=== PATIENT | male | born 1950 | race Caucasian/White ===

== ENCOUNTER → 2016-12-20 | Outpatient (CLI) | payer OTHER ==
[~2016-12-20] MED LIST: ACET-1256 PO; ACET-749 PO; ASCO500T3 PO; ASPI81TA28 PO; ATOR-22 PO; CIPR-255 PO; KRIL1CAP18 PO; NORT75CA2 PO; PHEN-876 PO; SERT50TA PO; VITAMIN D PO
== END | disposition home or self-care (01) ==
LOC: C.LABSPEC 17:55 → C.PATHSPEC 18:21
PROVIDERS: ATTEND Nurse Practitioner Family
DX: R31.0 Gross hematuria (principal); C68.9 Malignant neoplasm of urinary organ, unspecified

== ENCOUNTER 2017-01-03 04:48 | Day surgery (SDC) | payer OTHER ==
--- NOTE | 2016-12-28 11:34 | PAT Medication Instructions ---
Service Date December 28, 2016. Current Home Medication List Acetaminophen (Tylenol), 1,000 MG PO PRN Ascorbic Acid (Vitamin C), 500 MG PO BID Aspirin (Aspirin Ec), 81 MG PO QPM Atorvastatin (Lipitor), 20 MG PO QPM Krill Oil (Megared [place]-3 Krill Oil 500 mg), 1 TAB PO QAM Nortriptyline Hcl (Pamelor), 75 MG PO HS Sertraline (Zoloft), 50 MG PO QPM [Vitamin D], 800 UNITS PO BID Medication Instructions For Your Scheduled Surgery - Held as of 12/20/16: Krill Oil (Megared [place]-3 Krill Oil 500 mg), 1 TAB PO QAM Aspirin (Aspirin Ec), 81 MG PO QPM - Hold the following medications the morning of surgery: Ascorbic Acid (Vitamin C), 500 MG PO BID [Vitamin D], 800 UNITS PO BID - Take the following medications the morning of surgery with a sip of water OTHERWISE NOTHING TO EAT OR DRINK AFTER MIDNIGHT: Acetaminophen (Tylenol), 1,000 MG PO PRN (may take up to 4 hours prior to surgery if needed) - Take the following medications as scheduled the night before surgery: Ascorbic Acid (Vitamin C), 500 MG PO BID [Vitamin D], 800 UNITS PO BID Atorvastatin (Lipitor), 20 MG PO QPM Nortriptyline Hcl (Pamelor), 75 MG PO HS Sertraline (Zoloft), 50 MG PO QPM Acetaminophen (Tylenol), 1,000 MG PO PRN If you have any questions please call us at [phone] or [phone] or [phone]
--- NOTE | 2016-12-28 12:11 | DIAGNOSTIC IMAGING REPORT ---
CHEST PREADMISSION(PA/LAT) CLINICAL HISTORY: Preoperative evaluation. COMPARISON STUDY: No previous studies for comparison. FINDINGS: There is mild lung hyperexpansion. No consolidation is identified and there is no evidence of pulmonary edema. Cardiomediastinal silhouette is normal. There is no pneumothorax or pleural effusion. IMPRESSION: 1. No acute cardiopulmonary findings. 2. Mild lung hyperexpansion. Electronically signed by: Gigi Silvestre M.D. 12/28/2016 12:10 PM Dictated Date/Time: 12/28/2016 12:09 PM
[2016-12-28 12:24] LABS: BASO % 0.5 %; BASO ABS # 0.04 K/uL (0-0.2); COMPLETE YES; EOS % 2.1 %; HEMATOCRIT 46.2 % (42-52); IG% 0.3 %; LYMPH % 18.4 %; LYMPH ABS # 1.42 K/uL (1.2-3.4); MEAN CELL VOLUME 93.1 fL (80-100); MEAN CORPUSCULAR HGB CONC 33.3 g/dl (32-36); MEAN PLATELET VOLUME 8.8 fL (7.4-10.4); MONO % 6.8 %; NEUT % 71.9 %; PLATELET COUNT 224 K/uL (130-400); RED BLOOD COUNT 4.96 M/uL (4.7-6.1)
[2016-12-28 12:32] LABS: URINE APPEARANCE CLEAR (CLEAR); URINE BILIRUBIN NEG (NEG); URINE COLOR YELLOW; URINE NITRITE NEG (NEG); URINE SPECIFIC GRAVITY 1.008 (1.000-1.030); UROBILINOGEN NEG (NEG)
[2016-12-28 12:38] LABS: MANUAL MICROSCOPIC REQUIRED? NO; REVIEW REQ? NO
[2016-12-28 13:36] LABS: CALCIUM 9.5 mg/dl (8.5-10.1); CREATININE 0.92 mg/dl (0.60-1.40); POTASSIUM 4.5 mmol/L (3.5-5.1)
[~2017-01-03] VITALS: Ht 198.1 cm; Wt 119.7 kg
[~2017-01-03 04:48] MED LIST changes: -ACET-749 PO; -CIPR-255 PO; -PHEN-876 PO
[2017-01-03 05:38] VITALS: BP 148/86; PULSE 86; TEMP 36.5; O2SAT 97; Ht 198.1 cm; Wt 119.7 kg
[2017-01-03] MEDS ORDERED: MITOMYCIN FOR INJ 40 MG in SYRINGE 40 ML IR SCH (06:00)
[2017-01-03] MEDS ORDERED: LACTATED RINGER'S 1000ML 1,000 ML IV SCH (06:00)
[2017-01-03] MEDS ORDERED: CIPROFLOXACIN / D5W 400 MG IV SCH (06:00)
[2017-01-03] MEDS ORDERED: MIDAZOLAM HCL 1 MG/ML 2ML VIAL ONE (06:48)
[2017-01-03] MEDS ORDERED: FENTANYL CITRATE INJ 50 MCG/1 ML 2 ML VIAL ONE (06:48)
[2017-01-03 06:52] VITALS: PULSE 74; O2SAT 95
--- NOTE | 2017-01-03 07:16 | History & Physical Bridge Note ---
H&P Re-Evaluation Bridge Note: I have examined the patient, reviewed the History & Physical and in the interval since the performance of the History & Physical I have noted the following changes of clinical significance: No changes noted
[2017-01-03] MEDS ORDERED: DEXAMETHASONE SOD INJ 4 MG/ML VIAL ONE (07:35)
[2017-01-03] MEDS ORDERED: LIDOCAINE HCL 2% 2 ML VIAL (20MG/ML) ONE (07:35)
[2017-01-03] MEDS ORDERED: PROPOFOL IV EMULSION 10 MG/ML 20 ML VIAL IV ONE (07:35)
[2017-01-03] MEDS ORDERED: ONDANSETRON INJ 2 MG/ML 2 ML VIAL ONE (07:35)
[2017-01-03] MEDS ORDERED: HYDROmorphone INJ 2 MG/ML SYR/VIAL IV PRN (07:45)
[2017-01-03] MEDS ORDERED: PHENYLEPHRINE 100MCG/ML 5ML SYR IV PRN (07:45)
[2017-01-03] MEDS ORDERED: ATROPINE SULFATE 0.1 MG/ML 5ML SYR IV PRN (07:45)
[2017-01-03] MEDS ORDERED: EpHEDrine SULFATE INJ 50 MG/ML AMP IV PRN (07:45)
[2017-01-03] MEDS ORDERED: ONDANSETRON INJ 2 MG/ML 2 ML VIAL IV PRN (07:45)
[2017-01-03] MEDS ORDERED: BELLADONNA/OPIUM SUPP 60 MG SUPP PR ONE ×2 (08:20→11:26)
--- NOTE | 2017-01-03 08:34 | [facility] Post Operative Brief Note ---
Immediate Operative Summary Operative Date January 03, 2017. Pre-Operative Diagnosis Bladder Cancer Post-Operative Diagnosis Multifocal Bladder Cancer Procedure(s) Performed Cystoscopy, Transuretheral Resection Bladder Tumor (large, multifocal), Mytomycin C Installation Surgeon Dr. Schumacher Trawl Net Maker Surgeon(s) none Estimated Blood Loss 5 cc Findings Multifocal, papillary bladder ca. Majority of tumor on the left trigone, bladder neck, and lateral wall. UO spared. Main tumors located in a cluster surrounding, but not involving the UO. At least 15 satellite tumors scattered around the remainder of the bladder. Specimens A: Bladder tumor Drains Desai to pacu (to be removed after mitomycin C is drained) Anesthesia Gen Complication(s) None Disposition Recovery Room / PACU (stable)
[2017-01-03] MEDS ORDERED: PHEN-876 PO (08:35)
[2017-01-03] MEDS ORDERED: CIPR-255 PO (08:35)
[2017-01-03] MEDS ORDERED: ACET-749 PO (08:35)
[2017-01-03] MEDS ORDERED: SODIUM CHLORIDE 0.9% 1000ML 1,000 ML IV SCH (08:37)
--- NOTE | 2017-01-03 08:37 | Discharge Instructions ---
Discharge Instructions Date of Service January 03, 2017. Admission Reason for Admission: Hematuria , Bladder Cancer Discharge Discharge Diagnosis / Problem: Bladder cancer Discharge Goals Goal(s): Decrease discomfort, Improve function, Increase independence, Improve disease control Activity Recommendations Activity Limitations: resume your previous activity Lifting Limitations: none, gradually increase as tolerated Exercise/Sports Limitations: gradually increase as tolerated May Resume Sexual Activity: when tolerated Shower/Bathe: no limitations Driving or Machine Use: resume 1 day after discharge . Instructions / Follow-Up Instructions / Follow-Up Please keep your previously scheduled follow up appointment Discharge Diet Recommended Diet: Regular Diet Procedures Procedures Performed: Cystoscopy, Transuretheral Resection Bladder Tumor (large, multifocal), Mytomycin C Installation Pending Studies Studies pending at discharge: no Medical Emergencies . Who to Call and When: Medical Emergencies: If at any time you feel your situation is an emergency, please call 911 immediately. . Non-Emergent Contact Non-Emergency issues call your: Urologist Call Non-Emergent contact if: you have a fever, temperature is above 101.5, your pain is not controlled, your pain is worsening . . "Provider Documentation" section prepared by Helder Fraser. . VTE Core Measure Inpt VTE Proph given/why not?: Treatment not indicated [place] Drug Monitoring Program Search Results: patient reviewed within database, no issues identified
[2017-01-03] MEDS ORDERED: KETOROLAC TROMETHAMINE 30 MG/ML VIAL ONE (08:42)
[2017-01-03] MEDS ORDERED: ACETAMINOPHEN 325 MG TAB PO PRN (08:45)
[2017-01-03] MEDS ORDERED: HYDROCODONE/ACETAMOPHEN 5/325MG TAB PO PRN ×2 (08:45)
[2017-01-03] MEDS ORDERED: PHENAZOPYRIDINE HCL 200 MG TAB PO PRN (08:45)
[2017-01-03] MEDS ORDERED: PHENAZOPYRIDINE HCL 200 MG TAB PO SCH (09:00)
[2017-01-03 09:25] VITALS: BP 131/72; PULSE 73; TEMP 36.7; O2SAT 96
[2017-01-03 09:50] VITALS: BP 140/79; PULSE 80; O2SAT 94
[2017-01-03 10:25] VITALS: BP 140/77; PULSE 87; O2SAT 94
--- NOTE | 2017-01-03 10:28 | Anesthesiology Progress Note ---
Anesthesia Post Op Note Date & Time January 03, 2017 at 10:28 Vital Signs Pain Intensity: 0 Vital Signs Past 12 Hours Date Time Temp Pulse Resp B/P Pulse Ox O2 Delivery O2 Flow Rate FiO2 01/03/17 09:50 80 18 140/79 94 Room Air 01/03/17 09:25 36.7 73 18 131/72 96 Room Air 01/03/17 09:15 120/79 01/03/17 09:13 77 18 94 01/03/17 09:13 75 18 01/03/17 09:10 114/72 01/03/17 09:08 74 12 01/03/17 09:08 36.6 73 16 120/79 95 Room Air 01/03/17 09:08 75 12 96 01/03/17 09:05 118/75 01/03/17 09:03 79 16 94 01/03/17 09:03 79 16 01/03/17 09:00 120/71 01/03/17 08:58 80 17 94 01/03/17 08:58 79 17 01/03/17 08:57 81 14 01/03/17 08:57 80 14 95 01/03/17 08:56 118/ 01/03/17 08:52 75 18 01/03/17 08:52 77 18 96 01/03/17 08:50 114/69 01/03/17 08:47 69 20 01/03/17 08:47 68 20 98 01/03/17 08:46 131/76 01/03/17 08:42 93 21 142/77 96 01/03/17 08:42 93 21 01/03/17 08:42 36.0 91 18 142/77 96 Mask 10 01/03/17 06:52 74 16 95 Room Air 01/03/17 05:38 36.5 86 20 148/86 97 Room Air Notes Mental Status: alert / awake / arousable, participated in evaluation Pt Amnestic to Procedure: Yes Nausea / Vomiting: adequately controlled Pain: adequately controlled Airway Patency, RR, SpO2: stable & adequate BP & HR: stable & adequate Hydration State: stable & adequate Anesthetic Complications: no major complications apparent
--- NOTE | 2017-01-03 11:44 | OPERATIVE REPORT ---
DATE OF OPERATION: 01/03/2017 PREOPERATIVE DIAGNOSIS: Bladder tumor. POSTOPERATIVE DIAGNOSIS: Multifocal papillary bladder tumors. PROCEDURE PERFORMED: Cystoscopy, transurethral resection of bladder tumor (large); instillation of mitomycin C ANESTHESIA: General. ESTIMATED BLOOD LOSS: 5 Ml. URINE OUTPUT: Not recorded. SPECIMENS: Bladder tumor for routine pathology. DESCRIPTION OF THE PROCEDURE: Darren Tyson was identified in the preoperative holding area. Appropriate informed consents were reviewed and completed and the patient was transported to the operating suite. Upon arrival, he received appropriate preoperative antibiotics in the form of ciprofloxacin. Adequate general anesthesia was achieved and the patient was placed in dorsal lithotomy position where he was sterilely prepped and draped in standard fashion. I began the case by passing a 27-Slovak resectoscope with 30 degree lens and visual obturator. I was able to inspect the urethra and noted no abnormalities. He has a relatively small prostate with mild lateral lobe hypertrophy. Immediately upon entry into the bladder I encountered papillary appearing bladder tumors arising predominately from the left lateral bladder wall, left side of the trigone and the left serenity bladder neck. Full inspection of these revealed a primary tumor that was approximately 4-5 cm across with two or three other moderated sized 2-3 cm tumors immediately adjacent to it. I was able to identify the left ureteral orifice in the healthy appearing tissue between these tumors. I then surveyed the remaining aspects of the bladder and identified at least 15 other satellite tumors. The majority of these were very small, probably 2-3 mm in size, but were scattered along the posterior bladder wall, the left lateral wall and anterior left side. Following my full inspection, I exchanged the visual obturator for resecting loop and I began with the satellite tumors fulgurating and resecting all of these tumors flush with the bladder. Again, this is in excess of 15 small tumors. I then turned my attention to the larger tumors that were the predominant finding. I sequentially resected all of these beginning at the anterior lateral aspect and moving medially. I used extreme care to preserve the ureteral orifice to avoid cautery around it. I completed my resection by resecting the area around the bladder neck and fulgurated all bleeding vessels. I then irrigated all tumor out of the bladder. I inspected all resection sites and saw no evidence of perforation or other abnormalities. There was excellent hemostasis. I left the bladder full. I withdrew my cystoscope and placed a Desai catheter. The Desai catheter first drained the bladder and then I utilized this catheter to instill 40 mg of mitomycin mixed with 40 mL of water. Catheter was clamped after installation of this with a Desai bag attached below the clamp. The patient was sent to the PACU with this in place and will hold the mitomycin for 40 minutes to 1 hour to treat the remaining aspects of the bladder. The patient was subsequently extubated, reversed from anesthesia and taken to the PACU in stable condition. I attest to the content of the Intraoperative Record and any orders documented therein. Any exceptions are noted below. TRISTEND
[2017-01-03 12:05] VITALS: BP 154/76; PULSE 91; TEMP 36.5; O2SAT 91
[2017-01-03] MEDS ORDERED: TAMSULOSIN HCL 0.4 MG CAP PO SCH (21:00)
== END 2017-01-03 12:22 | disposition home or self-care (01) ==
LOC: C.ACU 04:48
PROVIDERS: ATTEND Urology
DX: C67.9 Malignant neoplasm of bladder, unspecified (principal); M19.90 Unspecified osteoarthritis, unspecified site; E78.5 Hyperlipidemia, unspecified; F17.200 Nicotine dependence, unspecified, uncomplicated; Z79.82 Long term (current) use of aspirin; Z82.49 Family history of ischemic heart disease and other diseases of the circulatory system; Z79.899 Other long term (current) drug therapy

== ENCOUNTER → 2017-03-20 | Outpatient (CLI) | payer OTHER ==
[~2017-03-20] MED LIST changes: +ACET-749 PO; +CIPR-255 PO; +PHEN-876 PO
[2017-03-20 16:36] LABS: BASO % 0.5 %; BASO ABS # 0.04 K/uL (0-0.2); COMPLETE YES; EOS % 2.3 %; HEMATOCRIT 46.4 % (42-52); IG% 0.3 %; LYMPH % 15.5 %; LYMPH ABS # 1.36 K/uL (1.2-3.4); MEAN CELL VOLUME 91.5 fL (80-100); MEAN CORPUSCULAR HEMOGLOBIN 30.8 pg (25-34); MEAN CORPUSCULAR HGB CONC 33.6 g/dl (32-36); MEAN PLATELET VOLUME 8.6 fL (7.4-10.4); MONO % 7.4 %; PLATELET COUNT 237 K/uL (130-400); RED BLOOD COUNT 5.07 M/uL (4.7-6.1); URINE APPEARANCE CLOUDY (CLEAR); URINE BILIRUBIN NEG (NEG); URINE COLOR YELLOW; URINE EPITHELIAL CELL AUTO 0-5 /lpf (0-5); URINE NITRITE NEG (NEG); URINE SPECIFIC GRAVITY 1.015 (1.000-1.030); UROBILINOGEN NEG (NEG); WHITE BLOOD COUNT 8.78 K/uL (4.8-10.8)
[2017-03-20 16:43] LABS: MANUAL MICROSCOPIC REQUIRED? NO; REVIEW REQ? YES
[2017-03-20 17:04] LABS: BLOOD UREA NITROGEN 15 mg/dl (7-18); BUN/CREATININE RATIO 13.6 (10-20); CALCIUM 9.4 mg/dl (8.5-10.1); CARBON DIOXIDE 28 mmol/L (21-32); CHLORIDE 105 mmol/L (98-107); GLUCOSE 97 mg/dl (70-99); SODIUM 139 mmol/L (136-145)
--- NOTE | 2017-05-06 05:50 | CODING QUERY MEDICAL NECESSITY ---
CQSUPPORTING DIAGNOSIS NEEDED A supporting diagnosis is required for the test/procedure performed on this patient in order for us to be reimbursed by the patient's insurance. Please provide a supporting diagnosis for the following test/procedure listed below next to the test name along with your signature. *If there is no additional diagnosis for this patient that would support the following test/procedure please document that below next to the test/procedure. Test(s)/Procedure(s) that require a supporting diagnosis: SAMARA 03/20/17 URINE CULTURE TEST Provider Signature: Date: Thank you Jennifer Durbin Health Information Management Once completed, please kindly fax back to [phone] For questions please call [phone]
== END | disposition home or self-care (01) ==
LOC: C.LAB 15:26
PROVIDERS: ATTEND Urology
DX: Z01.812 Encounter for preprocedural laboratory examination (principal); C67.9 Malignant neoplasm of bladder, unspecified

== ENCOUNTER 2017-03-28 07:18 | Day surgery (SDC) | payer OTHER ==
[~2017-03-28] VITALS: Ht 198.1 cm; Wt 120.0 kg
[~2017-03-28 07:18] MED LIST changes: +CIPROFLOXACIN / D5W 400 MG IV SCH; +LACTATED RINGER'S 1000ML 1,000 ML IV SCH
[2017-03-28] MEDS ORDERED: PROPOFOL IV EMULSION 10 MG/ML 20 ML VIAL IV ONE (07:47)
[2017-03-28] MEDS ORDERED: LIDOCAINE HCL 2% 2 ML VIAL (20MG/ML) ONE (07:47)
[2017-03-28] MEDS ORDERED: FENTANYL CITRATE INJ 50 MCG/1 ML 2 ML VIAL ONE ×2 (07:48→09:37)
[2017-03-28] MEDS ORDERED: MIDAZOLAM HCL 1 MG/ML 2ML VIAL ONE (07:48)
[2017-03-28 07:57] VITALS: BP 120/81; PULSE 94; TEMP 36.5; O2SAT 97; Ht 198.1 cm; Wt 120.0 kg
[2017-03-28] MEDS ORDERED: ONDANSETRON INJ 2 MG/ML 2 ML VIAL IV PRN ×2 (09:30→10:45)
[2017-03-28] MEDS ORDERED: EpHEDrine SULFATE INJ 50 MG/ML AMP IV PRN ×2 (09:30→10:45)
[2017-03-28] MEDS ORDERED: FENTANYL CITRATE INJ 50 MCG/1 ML 2 ML VIAL IV PRN ×2 (09:30→10:45)
[2017-03-28] MEDS ORDERED: ATROPINE SULFATE 0.1 MG/ML 5ML SYR IV PRN ×2 (09:30→10:45)
[2017-03-28] MEDS ORDERED: PROMETHAZINE HCL INJ 6.25 MG in SODIUM CHLORIDE 0.9% 50ML 50 ML IV PRN ×2 (09:30→10:45)
[2017-03-28] MEDS ORDERED: OXYCODONE/ACETAMINOPHEN 5-325 TAB PO PRN ×2 (10:00)
[2017-03-28] MEDS ORDERED: ACETAMINOPHEN 325 MG TAB PO PRN (10:00)
[2017-03-28] MEDS ORDERED: SODIUM CHLORIDE 0.9% 1000ML 1,000 ML IV SCH (10:00)
[2017-03-28] MEDS ORDERED: ONDANSETRON INJ 2 MG/ML 2 ML VIAL ONE (10:10)
--- NOTE | 2017-03-28 10:12 | [facility] Operative Report ---
Operative Report Operative Date Mar 28, 2017. Pre-Operative Diagnosis Bladder Cancer Post-Operative Diagnosis Bladder Cancer Procedure(s) Performed Cystoscopy, Numerous Bladder Biopsies, Fulgeration Surgeon Dr. Schumacher Magistrate Judge Surgeon(s) none Estimated Blood Loss 5 cc Findings Necrotic tissue on his prior resection site on the left lateral wall and at the bladder neck; erythematous patches on the right lateral wall and posterior wall ; no recurrent papillary tumors Specimens A: Right Lateral Wall Biopsy B: Left Lateral Wall Biopsy C: Left Lateral Wall Biopsy prior to resection site Drains none Anesthesia Gen Complication(s) None Disposition Recovery Room / PACU (stable) Indications History of bladder cancer ;concern for recurrent Description of Procedure Darren Tyson was identified in the preoperative holding area, appropriate informed consents were reviewed and completed, and the patient was transported to the operating suite. Upon arrival he received appropriate preoperative antibiotics in the form of ciprofloxacin. Adequate general anesthesia was achieved, and the patient was placed in dorsal lithotomy position where he was sterilely prepped and draped in standard fashion. I begin the case by passing a 24 Ghanaian resectoscope with 30 lens and visual obturator. Inspection of the urethra failed to reveal any stricture disease, prostate was moderately enlarged without significant obstruction. Full evaluation of the bladder was carried out utilizing a 30 and 70 lens. This revealed to prior resection site on the left lateral wall which did not completely healed. There appeared to be necrotic tissue protruding from both of these resection sites. He was no evidence of papillary tumor in these areas. Additional areas of concern were noted on the posterior wall and the right lateral wall. While there were no papillary tumors appreciated, there were numerous small erythematous patches. I proceeded by biopsying the erythematous patches on the right lateral and posterior chapman. I then fulgurated the bases of these lesions. I continued by gently scraping of the necrotic tissue from the prior resection sites. I then performed bladder biopsies at the base of these areas and passed this off the table as a separate specimen. I utilized electrocautery loop fulgurated the full area of the prior resection site including the erythematous base and the biopsy site. I then drain the bladder after confirming excellent hemostasis. Case was concluded, the patient was extended and taken to PACU in stable condition. I attest to the content of the Intraoperative Record and any orders documented therein. Any exceptions are noted below.
[2017-03-28] MEDS ORDERED: PHEN-876 PO (10:13)
[2017-03-28] MEDS ORDERED: CIPR-255 PO (10:13)
[2017-03-28] MEDS ORDERED: ACET-749 PO (10:13)
--- NOTE | 2017-03-28 10:16 | Discharge Instructions ---
Discharge Instructions Date of Service Mar 28, 2017. Admission Reason for Admission: Bladder Cancer Discharge Discharge Diagnosis / Problem: bladder cancer Discharge Goals Goal(s): Decrease discomfort, Improve function, Increase independence, Improve disease control Activity Recommendations Activity Limitations: resume your previous activity Lifting Limitations: none Exercise/Sports Limitations: none May Resume Sexual Activity: when tolerated Shower/Bathe: no limitations Driving or Machine Use: resume 1 day after discharge . Instructions / Follow-Up Instructions / Follow-Up Please keep your previously scheduled follow-up appointment Discharge Diet Recommended Diet: Regular Diet Procedures Procedures Performed: Cystoscopy, Numerous Bladder Biopsies, Fulgeration Pending Studies Studies pending at discharge: no Medical Emergencies . Who to Call and When: Medical Emergencies: If at any time you feel your situation is an emergency, please call 911 immediately. . Non-Emergent Contact Non-Emergency issues call your: Urologist Call Non-Emergent contact if: you have a fever, temperature is above 101.5, your pain is not controlled, your pain is worsening . . "Provider Documentation" section prepared by Helder Fraser. . VTE Core Measure Inpt VTE Proph given/why not?: Treatment not indicated [place] Drug Monitoring Program Search Results: patient reviewed within database, no issues identified
--- NOTE | 2017-03-28 10:42 | Anesthesiology Progress Note ---
Anesthesia Post Op Note Date & Time Mar 28, 2017 at 10:41 Vital Signs Pain Intensity: 0 Vital Signs Past 12 Hours Date Time Temp Pulse Resp B/P (MAP) Pulse Ox O2 Delivery O2 Flow Rate FiO2 03/28/17 10:38 36.3 03/28/17 10:37 74 16 92 03/28/17 10:37 74 16 93 03/28/17 10:36 121/81 03/28/17 10:31 113/72 03/28/17 10:28 80 16 94 03/28/17 10:28 75 16 03/28/17 10:26 121/79 03/28/17 10:22 81 14 94 03/28/17 10:22 81 16 94 03/28/17 10:21 108/78 03/28/17 10:16 133/88 03/28/17 10:12 89 15 98 03/28/17 10:12 89 15 03/28/17 10:11 125/81 03/28/17 10:07 77 13 97 03/28/17 10:07 76 13 97 03/28/17 10:06 101/80 03/28/17 10:04 124/67 03/28/17 10:02 36.2 78 10 124/67 96 Mask 10 03/28/17 07:57 36.5 94 22 120/81 (94) 97 Room Air Notes Mental Status: alert / awake / arousable, participated in evaluation Pt Amnestic to Procedure: Yes Nausea / Vomiting: adequately controlled Pain: adequately controlled Airway Patency, RR, SpO2: stable & adequate BP & HR: stable & adequate Hydration State: stable & adequate Anesthetic Complications: no major complications apparent
[2017-03-28 10:47] VITALS: BP 115/67; PULSE 73; TEMP 36.5; O2SAT 93
[2017-03-28 11:20] VITALS: BP 138/87; PULSE 68; O2SAT 95
[2017-03-28 11:55] VITALS: BP 150/89; PULSE 73; TEMP 36.5; O2SAT 95
== END 2017-03-28 12:20 | disposition home or self-care (01) ==
LOC: C.ACU 07:18
PROVIDERS: ATTEND Urology
DX: N30.20 Other chronic cystitis without hematuria (principal); Z85.51 Personal history of malignant neoplasm of bladder; E78.5 Hyperlipidemia, unspecified; F17.200 Nicotine dependence, unspecified, uncomplicated; Z79.899 Other long term (current) drug therapy

== ENCOUNTER → 2017-04-12 | Outpatient (CLI) | payer OTHER ==
[~2017-04-12] MED LIST changes: -CIPROFLOXACIN / D5W 400 MG IV SCH; -LACTATED RINGER'S 1000ML 1,000 ML IV SCH
== END | disposition home or self-care (01) ==
LOC: C.LABSPEC 11:12
PROVIDERS: ATTEND Urology
DX: C67.9 Malignant neoplasm of bladder, unspecified (principal)

== ENCOUNTER 2024-09-18 08:17 | Inpatient (IN) ==
--- NOTE | 2024-09-12 16:03 | Anesthesiology Consultation ---
Date of Service September 12, 2024 Assessment & Plan (1) Encounter for pre-operative examination: - Per care analyst on 09/12/24: No known infectious disease contacts, current infectious disease symptoms in past 10 days or COVID positive test result in the past 30 days. Chart Review Chart Review: Acceptable Risk for Surgery and Patient NOT seen in Pre Admission Testing History Surgery Operation Date: 09/18/24 10:20 Proposed Procedures p Percutaneous Endovascular Aneurysm Repair - Darren Rico MD Height/Weight Height: 6 ft 5 in Weight: 102.965 kg Allergies Allergy/AdvReac Type Severity Reaction Status Date / Time sulfamethoxazole Allergy Severe Anaphylaxis Verified 09/12/24 15:29 [From Bactrim] trimethoprim [From Bactrim] Allergy Severe Anaphylaxis Verified 09/12/24 15:29 tamsulosin [From Flomax] AdvReac Intermediate Irritable Verified 09/12/24 15:29 Medications Home Medications Medication Instructions Recorded Confirmed Last Taken aspirin 81 mg tablet,delayed 81 mg PO QPM ##0 12/28/16 09/12/24 1 Week Ago release (Michelle Low Dose Aspirin) ~04/04/24 atorvastatin 20 mg tablet (Lipitor) 20 mg PO QPM #0 tabs 12/28/16 09/12/24 04/10/24 19:00 albuterol sulfate 90 mcg/actuation 1 inh inhalation QID PRN Shortness 04/02/24 09/12/24 2 Months Ago aerosol inhaler Of Breath ~02/10/24 oxycodone 15 mg tablet 15 mg PO Q4H PRN Pain 04/02/24 09/12/24 04/11/24 07:00 sertraline 100 mg tablet (Zoloft) 100 mg PO QAM 04/02/24 09/12/24 04/10/24 16:00 fentanyl 25 mcg/hr transdermal 1 patch transdermal Q3D 09/12/24 09/12/24 Unknown patch Past Medical History Medical History (Updated 09/12/24 @ 16:00 by Elina Liu PA-C) AAA (abdominal aortic aneurysm) "I just know its an aneurysm, I don't know what kind" as per pts Anxiety Bladder cancer sx + BCG treatment Chronic obstructive pulmonary disease Hx of hematuria Hyperlipidemia Neuropathy B/L LE Osteoarthritis Past Family History Family History Other No family history of adverse response to anesthesia Past Surgical History Surgical History History of biopsy of bladder History of bladder surgery x2 (for cancer) History of cardiac cath approximately 15? years ago= no stents History of cataract surgery right/left History of lumbar surgery x 2 *hardware intact History of postoperative nausea and vomiting History of tonsillectomy History of tooth extraction History of transurethral destruction of bladder lesion TURBT, B/L stent insertion: 04/27/20: LMA#5 at [facility] History of transurethral resection of bladder tumor (TURBT) (04/11/24) Hx of inguinal hernia repair Social History Smoking Status: Current every day smoker tobacco type: cigarettes Smoking cigarettes per day: 10 per day Do You Dip or Chew Tobacco: No Hx Alcohol Use: No Hx Substance Use: No substance use type: does not use Lab Results Anesthesia Preop Results Results Anesthesia Widget: WBC 6.54 K/ul (4.8-10.8) 08/13/24 Hgb 14.4 g/dl (14.0-18.0) 08/13/24 Hct 43.9 % (42.0-52.0) 08/13/24 Plt 207 K/uL (130-400) 08/13/24 Na 139 mmol/L (136-145) 08/13/24 K 4.5 mmol/L (3.5-5.1) 08/13/24 Cl 107 mmol/L (98-107) 08/13/24 CO2 27 mmol/L (21-32) 08/13/24 BUN 15 mg/dl (6-23) 08/13/24 Creat 0.90 mg/dl (0.6-1.4) 08/13/24 Glucose Level 93 mg/dl (70-99(Fasting)) 08/13/24 PT 10.6 Seconds (9.0-12.0) 08/13/24 PTT 28 Seconds (21-31) 08/13/24 INR 1.0 (0.9-1.1) 08/13/24 Testing Electrocardiogram Date: 08/13/24 Sinus rhythm with occasional PVCs, rate 70 bpm Cannot rule out anterior infarct, age undetermined Chest X-Ray Date: 08/13/24 *1 view* No acute process. Other Testing Chest CTA 08/13/24 1. No pulmonary embolus noted. 2. Emphysema with acute and/or chronic bronchitis. No pneumonia. Abdomen pelvis CT 08/13/24 1. Allowing for suboptimal venous opacification, no venous clot identified. 2. Now present is a 5.5 cm infrarenal abdominal aortic aneurysm without rupture or dissection
--- NOTE | 2024-09-18 07:46 | History & Physical Report ---
Date of Service September 18, 2024 Assessment & Plan (1) AAA (abdominal aortic aneurysm) without rupture: Plan: Patient for PEVAR repair of his AAA. I have discussed the risks options and benefits of the procedure with the patient. The patient understands the risks options and benefits and agrees to the procedure. History of Present Illness Chief Complaint: AAA Primary Care Provider: Rama Andre Tyson is a 74-year-old gentleman who has been treated for bladder cancer last few years. He underwent CT scanning of his abdomen and pelvis recently which showed a 5.7 infrarenal abdominal aortic aneurysm. He has no complaints of abdominal pain other than some indigestion. He denies any claudication. He denies any symptoms cerebrovascular sufficiency. He does have a brother that suddenly of unknown causes. He does have high blood pressure and has a [id number] history of smoking. Allergies Allergy/AdvReac Type Severity Reaction Status Date / Time sulfamethoxazole Allergy Severe Anaphylaxis Verified 09/12/24 15:29 [From Bactrim] trimethoprim [From Bactrim] Allergy Severe Anaphylaxis Verified 09/12/24 15:29 tamsulosin [From Flomax] AdvReac Intermediate Irritable Verified 09/12/24 15:29 Home Medications Medication Instructions Recorded Confirmed Type aspirin 81 mg tablet,delayed 81 mg PO QPM ##0 12/28/16 09/12/24 History release (Michelle Low Dose Aspirin) atorvastatin 20 mg tablet (Lipitor) 20 mg PO QPM #0 tabs 12/28/16 09/12/24 History albuterol sulfate 90 mcg/actuation 1 inh inhalation QID PRN Shortness 04/02/24 09/12/24 History aerosol inhaler Of Breath oxycodone 15 mg tablet 15 mg PO Q4H PRN Pain 04/02/24 09/12/24 History sertraline 100 mg tablet (Zoloft) 100 mg PO QAM 04/02/24 09/12/24 History fentanyl 25 mcg/hr transdermal 1 patch transdermal Q3D 09/12/24 09/12/24 History patch Past Med/Surg History Problem List (Updated 09/18/24 @ 07:45 by Darren Rico MD) AAA (abdominal aortic aneurysm) without rupture CIS (carcinoma in situ of bladder) Encounter for pre-operative examination Hematuria, gross Medical History AAA (abdominal aortic aneurysm) "I just know its an aneurysm, I don't know what kind" as per pts Chronic obstructive pulmonary disease Bladder cancer sx + BCG treatment Neuropathy B/L LE Osteoarthritis Anxiety Hx of hematuria Hyperlipidemia Surgical History History of transurethral resection of bladder tumor (TURBT) (04/11/24) History of postoperative nausea and vomiting History of lumbar surgery x 2 *hardware intact History of tonsillectomy History of transurethral destruction of bladder lesion TURBT, B/L stent insertion: 04/27/20: LMA#5 at [facility] History of biopsy of bladder Hx of inguinal hernia repair History of tooth extraction History of cataract surgery right/left History of cardiac cath approximately 15? years ago= no stents History of bladder surgery x2 (for cancer) Family History Other No family history of adverse response to anesthesia Social History Smoking Status: Current every day smoker Tobacco Type: Cigarettes Cigarettes Per Day: 10 per day; Second Hand Exposure: No; Do You Dip or Chew Tobacco: No; Tobacco Cessation Education Requested by Patient: No Hx Alcohol Use: No Hx Substance Use: No Preferred Language: Latvian Communication Ability: Effective Communication Ability Comment: PAMUNKEY>impaired Visual Impairment: No Limitations Personal Loan Specialist Required: No Beliefs That Will Affect Care: None Current Living Situation: Spouse Other Information That Helps Us Care for You: No Feels Safe at Home: Yes Safety Concerns: Feels Safe At This Time Assistive Devices: Cane, Denture - Upper, Glasses and Walker Review of Systems All systems reviewed & are unremarkable except as noted in HPI & below Physical Exam Physical Exam: On physical exam he is awake alert and oriented x 3. He is in no apparent distress. Blood pressure is 140/70 on the left and 132/70 on the right. Radials and carotids are +2 bilaterally. No carotid bruits. Heart had a regular rate and rhythm. His lungs are clear but breath sounds are slightly distant. Abdominal sounds benign. There is a moderate size pulsatile mass in the mid epigastrium approximately 5 to 6 cm on palpation. Femorals and pedal pulses are +2 bilaterally. Neurologic exam normal to motor and sensory function. Diagnostic Results CT scan done in the emergency room showed a 5.7 infrarenal abdominal aortic aneurysm.
[2024-09-18] MEDS ORDERED: PROMETHAZINE HCL 6.25 MG in SODIUM CHLORIDE 0.9% 50 ML IV PRN (09:00)
[2024-09-18] MEDS ORDERED: ATROPINE SULFATE 0.1 MG/ML 10ML SYR IV PRN (09:00)
[2024-09-18] MEDS ORDERED: ePHEDrine sulfate 50 MG/ML AMP IV PRN (09:00)
[2024-09-18] MEDS ORDERED: fentaNYL citrate PF 100 MCG/2 ML VIAL IV PRN (09:00)
[2024-09-18] MEDS ORDERED: PROPOFOL IV EMULSION 10 MG/ML 20 ML VIAL IV ONE ×2 (09:03→09:05)
[2024-09-18] MEDS ORDERED: DEXAMETHASONE SOD INJ 4 MG/ML VIAL ONE (09:03)
[2024-09-18] MEDS ORDERED: GLYCOPYRROLATE 0.2 MG/ML VIAL ONE (09:03)
[2024-09-18] MEDS ORDERED: LIDOCAINE 2% 2 ML VIAL/AMP(20MG/ML) INFIL ONE (09:03)
[2024-09-18] MEDS ORDERED: ROCURONIUM BROMIDE 10 MG/ML 5 ML VIAL IV ONE ×2 (09:03→11:43)
[2024-09-18] MEDS ORDERED: ONDANSETRON INJ 2 MG/ML 2 ML VIAL ONE (09:03)
[2024-09-18] MEDS: ALBUT/IPRATROP 3MG/0.5MG NEB 3 ML VIAL INH STA (09:15)
[2024-09-18] MEDS: ALBUT/IPRATROP 3MG/0.5MG NEB 3 ML VIAL ONE (09:15)
--- NOTE | 2024-09-18 09:34 | History & Physical Bridge Note ---
Date of Service September 18, 2024 History & Physical Bridge Note I have examined the patient, reviewed the History & Physical and in the interval since the performance of the History & Physical I have noted the following changes of clinical significance: no changes noted
[2024-09-18] MEDS: LACTATED RINGER'S 1,000 ML IV SCH (09:36)
[2024-09-18] MEDS ORDERED: MIDAZOLAM HCL 1 MG/ML 2ML VIAL ONE (09:52)
[2024-09-18] MEDS ORDERED: fentaNYL citrate PF 100 MCG/2 ML VIAL ONE ×2 (09:52→12:16)
[2024-09-18] MEDS: ceFAZolin 2000MG 2,000 MG/15 ML SYR IV SCH ×2 (10:05→17:44)
[2024-09-18] MEDS ORDERED: PHENYLEPHRINE HCL 25 MG/250 ML NSS IV ONE (10:59)
[2024-09-18] MEDS ORDERED: HEPARIN SOD (PORCINE) 1000 UNIT/ML ONE (11:02)
[2024-09-18] MEDS ORDERED: SUGAMMADEX SODIUM 200 MG/2 ML VIAL IV ONE (11:48)
--- NOTE | 2024-09-18 12:08 | Procedure Note ---
Angiogram Post Procedure Fluoroscopy Time (minutes): 8.1 Radiation (mGy): 478 Contrast: 135 Post Operative Report Pre & Post Diagnosis Operation Date: 09/18/24 10:20 Pre-Op Diagnosis: Abdominal Aortic Aneursym Post-Op Diagnosis: Abdominal Aortic Aneursym I identified the patient and participated in the time-out.: Yes Procedure Operation Date: 09/18/24 10:20 Actual Procedures p Percutaneous Endovascular Abdominal Aortic Aneurysm Repair, Mechanical Closure of Bilateral Femoral Arteries(Bilateral) - Darren Rico MD Surgeon Darren Rico MD Rehabilitation Team Lead Huey,PAC Estimated Blood Loss 30 Findings Consistent with Post-Op Diagnosis Specimens none Anesthesia Type General Complications none Disposition Accompanied Patient To Recovery: No Disposition: Recovery Room Indications This is a 74-year-old gentleman who was found to have a large abdominal aortic aneurysm. Endovascular repair is recommended. I have discussed the risks options and benefits of the procedure with the patient. The patient understands the risks options and benefits and agrees to the procedure. Description of Procedure The patient was brought to the OR and placed in supine position. Patient was intubated and general anesthesia was accomplished. A safety timeout was pe rformed to identify patient's name, date of and the correct procedure. Abdomen and groins were prepped and draped in sterile fashion. Ultrasound guided percutaneous access of the right groin was performed. The right common femoral artery was patent. A percutaneous puncture was made in the right common femoral artery using ultrasound. The depth finder for the Manta device was used to kyle ure the depth of the puncture. It was found to be 2.5 cm. The depth finder was removed and the 8 Estonian sheath inserted. We turned our attention to the right side and we similarly accessed the left common femoral artery. The left common femoral artery was patent. Using ultrasound left common femoral artery was punctured. The depth finder was used to measure the depth of the puncture of the left side and also found to be 3.5 cm from the skin edge. This was removed and 8 Estonian sheath was inserted. Patient was heparinized with 9000 of IV heparin. Through the right groin, we advanced a soft Glidewire followed by a Kumpe catheter. The wire then was exchanged for a stiff Joel wire. We then cannulated the aorta from the left side using 035 Glidewire and a Kumpe catheter. Once this was placed in the super renal aorta the wire was exchanged to a Joel wire.. We then upsized our access on the right side with a 14 Estonian dilator and subsequently to 18 Estonian dry seal sheath. The left groin sheath was then exchanged to a 12 Estonian dry seal sheath. Due to the length of the graft side and better to the left side is the side. The sheath was then upsized to an 18 Estonian. The sheaths were advanced all the way up in the aortic sac. A marker pig was inserted to the right groin. Aortography was performed. The level of the renal arteries were marked on the screen. This showed patency of both renal arteries and a acceptable neck for deployment of the graft. We advanced the device (Gardena excluder 31 mm x 14.5 mm x 15 cm) through the left sheath. The shaft of the graft was then deployed. An aortogram was performed. Both renal arteries were visualized just above the top of the deployed graft. Aortogram confirmed good location of the proximal end of the graft. The hooks were then deployed. Cannulation of the gate was then accomplished using an 035 glidewire and a Kumpke catheter. The wire spun easily in the neck of the graft. The 035 Glidewire was removed and a Joel wire was reinserted. A marker pigtail was then inserted over the Haley wire. The 18 Estonian sheath was then pulled down into the external iliac and an arteriogram was performed of the right iliac system. This identified the origin of the hypogastric and the right side. We then removed the pigtail. We reinserted a 18 Estonian sheath dilator and advanced the sheath into the gate of the graft. Prior to inserting the contralateral limb we deployed the ipsilateral limb to complete the deployment of the graft. The device was then removed from the right groin. We then inserted an 18mm x 9.5cm contralateral limb. The 18 Estonian sheath was then pulled down to below the level of the contralateral limb. Contralateral limb was then deployed without difficulty. The 18 Estonian sheath on the left side was then pulled down into the pelvis. Hand-injection was then performed to hu where the bifurcation of the common iliac artery was. We then chose a 14.5mm x 7cm contralateral limb to extend the left side limb. The graft was advanced to the 18 Estonian sheath. It was deployed with the distal end falling just above the iliac bifurcation. The MOB balloon was then inserted through the right sheath. The proximal attachment site, the gate and the distal attachment site were ballooned with the MOB balloon. The balloon was then removed. Was inserted through the left side 18 Estonian sheath and then dilated the overlap of the limbs and the distal attachment site of the left limb. The balloon was then removed. The pigtail was then inserted through the right side to above the renal arteries. A final arteriogram was then performed which showed no evidence of a type I endoleak. Graft showed no evidence of narrowing throughout. An Arsalan wire was then reinserted into the pigtail and the pigtail removed. The 18 Estonian sheath was then pulled and a 18 Estonian Manta device was inserted. This was deployed without difficulty. No bleeding was noted after deployment. The left groin sheath was then also pulled. An 18 Estonian Manta device was inserted and deployed. No evidence of bleeding was seen on the right side either. Sterile dressings were applied to the wounds.The patient left the operation room in satisfactory condition and tolerated the procedure well. All needle and sponge counts were correct at the end of the procedure. Marilin Wheat Pac assisted due to lack of resident availability and was necessary for positioning, draping, retraction, wound closure deep layers, subcutaneous tissue, and skin closure and was necessary for assisting with the case. I attest to the content of the Intraoperative Record and any orders documented therein. Any exceptions are noted below.
[2024-09-18] MEDS ORDERED: LABETALOL HCL IV 5 MG/ML 20ML IV ONE (12:25)
[2024-09-18] MEDS ORDERED: HYDROmorphone INJ 2 MG/ML SYR/VIAL ONE (12:25)
[2024-09-18] MEDS ORDERED: VISIPAQUE IV PRN (12:48)
[2024-09-18] MEDS ORDERED: ALBUTEROL HFA 8 GM INHALER INH PRN (14:08)
[2024-09-18] MEDS ORDERED: oxyCODONE/ACETAMINOPHEN 5mg/325mg TAB PO PRN (14:08)
[2024-09-18] MEDS: fentaNYL 25 MCG/HR TDSY TD SCH (14:45)
[2024-09-18] MEDS: oxyCODONE HCL IR 5 MG TAB (IMMEDIATE RELEASE) PO PRN (14:45)
[2024-09-18] MEDS: SODIUM CHLORIDE 0.9% 1,000 ML IV SCH (14:45)
[2024-09-18] MEDS: CHECK fentaNYL PATCH PLACEMENT SCH (15:03)
--- NOTE | 2024-09-18 15:11 | Anesthesiology Progress Note ---
Date of Service September 18, 2024 Anesthesia Post Procedure Vital Signs Vital Signs: Temp Pulse Pulse Resp BP BP BP 09/18/24 14:59 36.9 C 09/18/24 14:33 63 16 09/18/24 14:24 65 17 09/18/24 14:08 09/18/24 14:01 126/79 09/18/24 14:01 126/79 09/18/24 14:00 73 17 09/18/24 13:57 72 16 09/18/24 13:15 36.6 C 72 16 151/69 H 09/18/24 13:05 68 16 148/68 H 09/18/24 12:55 65 12 141/67 H 09/18/24 12:45 62 16 153/69 H 09/18/24 12:35 62 16 156/68 H 09/18/24 12:25 64 12 153/70 H 09/18/24 12:17 36.8 C 83 18 162/71 H 09/18/24 09:37 136/87 09/18/24 09:15 76 16 09/18/24 09:04 36.8 C 74 20 190/96 H BP Pulse Ox O2 Del Method O2 Flow Rate 09/18/24 14:59 09/18/24 14:33 94 09/18/24 14:24 95 09/18/24 14:08 Nasal Cannula 2 09/18/24 14:01 09/18/24 14:01 09/18/24 14:00 96 09/18/24 13:57 97 09/18/24 13:15 97 Nasal Cannula 2 09/18/24 13:05 97 Nasal Cannula 3 09/18/24 12:55 98 Nasal Cannula 3 09/18/24 12:45 98 Nasal Cannula 3 09/18/24 12:35 98 Oxymask 3 09/18/24 12:25 96 Oxymask 4 09/18/24 12:17 176/71 H 98 Oxymask 6 09/18/24 09:37 09/18/24 09:15 96 Room Air 09/18/24 09:04 170/92 H 97 Room Air Pain Intensity Bilateral Leg: Pain Intensity: 6 Transfer of Care Handoff Completed per policy Notes Mental Status: alert / awake / arousable and participated in evaluation Nausea / Vomiting: adequately controlled Pain: adequately controlled Airway Patency, RR, SpO2: stable & adequate BP & HR: stable & adequate Hydration State: stable & adequate Anesthetic Complications: no major complications apparent and Pt Satisfied with anesthetic care
--- NOTE | 2024-09-18 16:42 | Critical Care Consultation ---
Date of Consultation September 18, 2024 Assessment & Plan (1) AAA (abdominal aortic aneurysm) without rupture: (2) CIS (carcinoma in situ of bladder): (3) Hyperlipidemia: Plan Reason Critically Ill: 74 YOM presents to the ICU for postoperative monitoring of hemodynamics, cardiovascular exams, and neurovascular exams following Percutaneous Endovascular Abdominal Aortic Aneurysm Repair, Mechanical Closure of Bilateral Femoral Arteries(Bilateral). Neuro - Acute surgical pain, hx of neuropathy to bilateral lower extremities. CAM ICU: NEGATIVE - Postoperative pain managment per primary surgery- Fentanyl Patch, Oxycodone IR, - Zoloft for history of anxiety Cardiac - AAA repair PEVAR POD #0, Hx HLD - Postoperative repair - POD #0- CV and NV exams of lower extremities are intact - dressings intact without strike-through or evidence of hematoma - EBL 30ml - Currently without vasopressor requirements - BP parameters per primary surgery team noted- call vascualr for PRNS if warranted - Continue ASA as per primary surgery as hemostasis is ensured - Continue Statin Respiratory - Reported hx of COPD - No PFTs available for review- patient reports he does well with albuterol and rarely needs his IZA - Continue - add nebulizers if needed postoperatively GI - No acute needs - No N/V no pain - Tolerating liquids and is getting ready to eat dinner RENAL/LYTES - No acute needs - Follow renal indices and electrolytes - Hx of bladder cancer and renal stents - Desai draining ede colored urine - No acute needs at this time will follow urine output - does have history of gross hematuria ENDO - NO acute needs HEME - NO acute needs - transfusion per primary service unless patient is actively hemorrhaging we will manage ID - NO concern for acute infective process at this time. LINES/IV ACCESS - PIV, Desai Continue use of these lines DVT PROPHYLAXIS - SCDS, ASA, ambulation DISPO: ICU until hemodyanmics are proven stable as well as hemostasis is ensured I have personally spent 35 minutes of time in the direct management of this patient. This is a life/limb threatening event. This includes time spent evaluating patient, direct bedside care, chart review, placing orders, interpretation of diagnostic studies, discussion with consultants, patient, and family members, as well as other required patient management activities. This time is exclusive of all separately billable procedures, e and separate from and in addition to any other critical care service time. Thank you for allowing us to participate in the care of this patient. Please refer to my attending physician's documentation for any further recommendations. History of Present Illness Reason for Consultation: Postoperative Vascular monitoring Requesting Physician: Darren Rico MD Attending Physician: Darren Rico MD History of Present Illness 74 YOM with medical history of: Bladder Cancer (Re-current), nephropathy, OA, anxiety, COPD. Patient is s/p Percutaneous Endovascular Abdominal Aortic Aneurysm Repair, Mechanical Closure of Bilateral Femoral Arteries(Bilateral) performed by Dr. Rico. AAA was noted during CT abdomen/pelvis for his bladder cancer. For his bladder cancer, Patient has had a TUBT performed in the past as well as uretral stents in the right. Patient is seen in the ICU postoperative, he is awake, appropriate, without nausea/vomiting and pain is controlled. Extremities are warm and his groin sites are intact with laly wrap pressure dressing and without pain or surrounding hematoma noted. ICU for frequent vascular checks and following of his hemodynamic status. CODE: FULL Allergies Allergy/AdvReac Type Severity Reaction Status Date / Time sulfamethoxazole Allergy Severe Anaphylaxis Verified 09/18/24 09:01 [From Bactrim] trimethoprim [From Bactrim] Allergy Severe Anaphylaxis Verified 09/18/24 09:01 tamsulosin [From Flomax] AdvReac Intermediate Irritable Verified 09/18/24 09:01 Home Medications Medication Instructions Recorded Confirmed Type aspirin 81 mg tablet,delayed 81 mg PO QPM ##0 12/28/16 09/18/24 History release (Michelle Low Dose Aspirin) atorvastatin 20 mg tablet (Lipitor) 20 mg PO QPM #0 tabs 12/28/16 09/18/24 History albuterol sulfate 90 mcg/actuation 1 inh inhalation QID PRN Shortness 04/02/24 09/18/24 History aerosol inhaler Of Breath oxycodone 15 mg tablet 15 mg PO Q4H PRN Pain 04/02/24 09/18/24 History sertraline 100 mg tablet (Zoloft) 100 mg PO QAM 04/02/24 09/18/24 History fentanyl 25 mcg/hr transdermal 1 patch transdermal Q3D 09/12/24 09/18/24 History patch Patient History Medical History AAA (abdominal aortic aneurysm) "I just know its an aneurysm, I don't know what kind" as per pts Chronic obstructive pulmonary disease Bladder cancer sx + BCG treatment Neuropathy B/L LE Osteoarthritis Anxiety Hx of hematuria Hyperlipidemia Surgical History History of transurethral resection of bladder tumor (TURBT) (04/11/24) History of postoperative nausea and vomiting History of lumbar surgery x 2 *hardware intact History of tonsillectomy History of transurethral destruction of bladder lesion TURBT, B/L stent insertion: 04/27/20: LMA#5 at [facility] History of biopsy of bladder Hx of inguinal hernia repair History of tooth extraction History of cataract surgery right/left History of cardiac cath approximately 15? years ago= no stents History of bladder surgery x2 (for cancer) Family History Other No family history of adverse response to anesthesia Social History Smoking Status: Current every day smoker Tobacco Type: Cigarettes Cigarettes Per Day: 10 per day; Second Hand Exposure: No; Do You Dip or Chew Tobacco: No; Tobacco Cessation Education Requested by Patient: No Hx Alcohol Use: No Hx Substance Use: No Preferred Language: Barbadian Communication Ability: Effective Communication Ability Comment: SHAKTOOLIK>impaired Visual Impairment: No Limitations Book Canvasser Required: No Beliefs That Will Affect Care: None Current Living Situation: Spouse Other Information That Helps Us Care for You: No Feels Safe at Home: Yes Safety Concerns: Feels Safe At This Time Assistive Devices: Cane, Denture - Upper, Glasses and Walker Review of Systems Review of Systems: REVIEW OF SYSTEMS: Constitutional: No fever, sweats or chills Eyes: No diplopia, no worsening or blurred vision ENT: (+) difficutly hearing, wears glasses no trouble swallowing Respiratory: No cough, sputum, dyspnea at rest or on exertion Cardiovascular: No chest pain, tightness or palpitations Abdomen: No pain, nausea, vomiting, diarrhea or constipation Musculoskeletal: (+) chronic back pain and nueropathy of bilateral lower extremities, NO calf pain, swelling Neurologic: No weakness, numbness/tingling, or balance problems Physical Exam Physical Exam: PHYSICAL EXAM: General: awake, alert, no apparent distress Head: Normocephalic, atraumatic ENT: PERRL, EOMI, no pharyngeal exudate, mucous membranes moist Neuro: AAO x 3, speech clear and appropriate, strength intact bilaterally 5/5, sensation intact and equal all, no pronator drift Chest: equal rise and fall of the chest, no accessory muscle use, no heaves or thrills, Clear to auscultation,on 2LNC, bilateral groin sites intact with pressure dressing and LALY wrap. NO strike-through, no palpable hematoma or surrounding hematoma or tenderness appreciated. Cardiac: Regular rate and rhythm, telemetry reviewed- NSR, skin warm dry, cap refill <3 seconds, peripheral pulses +2 no JVD, no murmur, no edema GI: soft, nontender to palpation, no rebound, guarding or tenderness : Desai to gravity Results & Data Results & Data Vital Signs (Past 12 Hours) Vital Signs Temp Pulse Pulse Resp BP BP BP 09/18/24 14:59 36.9 C 09/18/24 14:33 63 16 09/18/24 14:24 65 17 09/18/24 14:08 09/18/24 14:01 126/79 09/18/24 14:01 126/79 09/18/24 14:00 73 17 09/18/24 13:57 72 16 09/18/24 13:15 36.6 C 72 16 151/69 H 09/18/24 13:05 68 16 148/68 H 09/18/24 12:55 65 12 141/67 H 09/18/24 12:45 62 16 153/69 H 09/18/24 12:35 62 16 156/68 H 09/18/24 12:25 64 12 153/70 H 09/18/24 12:17 36.8 C 83 18 162/71 H 09/18/24 09:37 136/87 09/18/24 09:15 76 16 09/18/24 09:04 36.8 C 74 20 190/96 H BP Pulse Ox O2 Del Method O2 Flow Rate 09/18/24 14:59 09/18/24 14:33 94 09/18/24 14:24 95 09/18/24 14:08 Nasal Cannula 2 09/18/24 14:01 09/18/24 14:01 09/18/24 14:00 96 09/18/24 13:57 97 09/18/24 13:15 97 Nasal Cannula 2 09/18/24 13:05 97 Nasal Cannula 3 09/18/24 12:55 98 Nasal Cannula 3 09/18/24 12:45 98 Nasal Cannula 3 09/18/24 12:35 98 Oxymask 3 09/18/24 12:25 96 Oxymask 4 09/18/24 12:17 176/71 H 98 Oxymask 6 09/18/24 09:37 09/18/24 09:15 96 Room Air 09/18/24 09:04 170/92 H 97 Room Air Laboratory Results Abnormal lab results 09/18/24 09/18/24 Range/Units 08:59 12:24 Hgb 13.0 L (14.0-18.0) g/dl Hct 39.0 L (42.0-52.0) % Crossmatch See Detail Coding Level of Care Code 77967 IN/OBS CONSULT LVL 2,35M Diagnoses AAA (abdominal aortic aneurysm) without rupture I71.40 CIS (carcinoma in situ of bladder) D09.0 Hyperlipidemia E78.5
[2024-09-18] MEDS: ATORVASTATIN 20 MG TAB PO SCH (21:18)
[2024-09-18] MEDS: ASPIRIN 81 MG ECTAB PO SCH (21:18)
[2024-09-19 05:12] LABS: Basophils # (auto) 0.02 K/uL (0.00-0.20); Basophils % (auto) 0.2 %; Eosinophils # (auto) 0.06 K/uL (0.00-0.50); Eosinophils % (auto) 0.7 %; Hematocrit (blood only) 34.7 % (42.0-52.0); Hemoglobin 11.4 g/dl (14.0-18.0); Immature Granulocytes # (auto) 0.03 K/uL (0.01-0.20); Immature Granulocytes % (auto) 0.4 %; Lymphocytes # (auto) 0.94 K/uL (1.20-3.40); Lymphocytes % (auto) 11.1 %; Mean Corpuscular Hgb Conc 32.9 g/dL (32.0-36.0); Mean Corpuscular Volume 91.3 fL (80.0-100.0); Mean Platelet Volume 9.2 fL (9.4-12.4); Monocytes # (auto) 0.62 K/uL (0.11-0.59); Monocytes % (auto) 7.3 %; Neutrophils # (auto) 6.83 K/uL (1.40-6.50); Neutrophils % (auto) 80.3 %; Platelet Count 156 K/uL (130-400); RDW Coefficient of Variation 14.6 % (11.5-14.5); RDW Standard Deviation 48.8 fL (36.4-46.3)
[2024-09-19 05:30] LABS: BUN Creatinine Ratio 22.4 (10-20); Calcium 8.2 mg/dl (8.6-10.3); Creatinine Clr Calc Pharmacy 96.1 ml/min
--- NOTE | 2024-09-19 06:56 | Critical Care Progress Note ---
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 Neuro - surgical pain, hx of neuropathy to b/l LE CAM ICU: NEGATIVE - Postoperative pain management per primary surgery- Fentanyl Patch, Oxycodone IR, - Zoloft for hx anxiety Cardiac - AAA repair PEVAR POD #1, Hx HLD - Postoperative repair - POD #1- cardio and neuro exams of lower extremities intact - dressings intact without strike-through or evidence of hematoma - Currently without vasopressor requirements - BP parameters per primary surgery team noted- call vascular for PRNS if warranted - Continue ASA as per primary surgery as hemostasis is ensured - Continue Statin - To followup with vascular surgery on outpatient basis Respiratory - Reported hx of COPD - No PFTs available for review- patient reports he does well with albuterol and rarely needs his IZA - nebulizer not needed postop GI - No acute needs - No n/v, no significant abdominal pain - Tolerating liquids and solid food without issue RENAL/LYTES - No acute needs - Follow renal indices and electrolytes - Hx of bladder cancer and renal stents - Desai draining dee colored urine - No acute needs at this time will follow urine output - does have history of gross hematuria ENDO - NO acute needs HEME - NO acute needs, Hgb 11.4 this AM - transfusion per primary service unless patient is actively hemorrhaging we will manage ID - prophylactically on cefazolin, otherwise no acute concern for infection LINES/IV ACCESS - PIV, Dseai - Continue use of these lines DVT PROPHYLAXIS - SCDS, ASA, ambulation DISPO: stable for discharge Admission and Anticipated Discharge Date Admission Date: September 18, 2024 Supervising Physician Co-Signing Physician Notes Dr. Pinedo was resident physician during care of patient. I generally agree with the findings and plan. Anticipate discharge from vascular surgery, critical care will sign off. Subjective Postop day 1 s/p percutaneous endovascular AAA repair w/ extension to b/l iliac arteries. Darren was seen and evaluated at bedside this AM, not in acute distress. Endorses he is feeling well, endorsing only minor back pain but no particular abdominal pain. Feels ready to move out of ICU. Review of Systems Review of Systems: denies fevers, body aches, chills, sweats, headache, dizziness, lightheadedness, SOB, chest pain, abdominal pain, numbness/tingling of extremities Physical Exam Physical Exam: Constitutional: A&Ox3, in no apparent distress Head: NC/AT ENT: PERRL, EOM intact, moist mucus membranes Respiratory: clear to auscultation b/l, no wheeze/rales/rhonchi Cardiovascular: RRR, no murmurs/rubs/gallops - pulses: 2+ carotid, 2+ radial, 2+ post tib and dorsalis pedis b/l GI: +BS, abdomen soft, no rebound or guarding, mild RLQ tenderness to palpation - lower abdomen + groin sites intact wi th pressure dressing and LALY wrap, mild tenderness to palpation of procedure entry area in RLQ, otherwise not tender to palpation Neuro: no facial droop, speech intact, sensation grossly intact : Desai to gravity Results & Data Results & Data Vital Signs (Past 12 Hours) Vital Signs Temp Pulse Pulse Resp BP BP BP 09/19/24 06:00 37 C 120/71 09/19/24 06:00 120/71 09/19/24 05:54 69 19 09/19/24 05:00 66 17 09/19/24 05:00 120/76 09/19/24 04:03 60 20 09/19/24 04:01 147/69 H 09/19/24 04:01 147/69 H 09/19/24 04:01 147/69 H 09/19/24 04:00 160/64 H 09/19/24 03:54 60 19 09/19/24 03:06 79 20 09/19/24 03:01 195/83 H 09/19/24 03:01 195/83 H 09/19/24 02:45 64 16 09/19/24 02:03 66 18 09/19/24 02:00 126/86 09/19/24 02:00 126/86 09/19/24 01:57 68 19 09/19/24 01:12 76 20 09/19/24 01:00 141/75 H 09/19/24 01:00 141/75 H 09/19/24 01:00 141/75 H 09/19/24 00:54 65 16 09/19/24 00:03 66 20 09/19/24 00:00 137/72 09/19/24 00:00 157/63 H 09/18/24 23:54 65 17 09/18/24 23:15 67 19 09/18/24 23:00 128/71 09/18/24 23:00 128/71 09/18/24 22:57 71 14 09/18/24 22:18 76 12 09/18/24 22:00 147/81 H 09/18/24 21:45 80 20 09/18/24 21:12 78 20 09/18/24 21:08 36.8 C 82 18 133/82 133/80 09/18/24 20:30 76 21 09/18/24 20:00 174/77 H 09/18/24 19:01 173/103 H 09/18/24 19:01 173/103 H 09/18/24 19:01 173/103 H 09/18/24 19:00 79 17 Pulse Ox O2 Del Method 09/19/24 06:00 09/19/24 06:00 09/19/24 05:54 95 09/19/24 05:00 95 09/19/24 05:00 09/19/24 04:03 95 09/19/24 04:01 09/19/24 04:01 09/19/24 04:01 09/19/24 04:00 09/19/24 03:54 94 09/19/24 03:06 81 L 09/19/24 03:01 09/19/24 03:01 09/19/24 02:45 96 09/19/24 02:03 94 09/19/24 02:00 09/19/24 02:00 09/19/24 01:57 94 09/19/24 01:12 88 L 09/19/24 01:00 09/19/24 01:00 09/19/24 01:00 09/19/24 00:54 96 09/19/24 00:03 94 09/19/24 00:00 09/19/24 00:00 09/18/24 23:54 96 09/18/24 23:15 96 09/18/24 23:00 09/18/24 23:00 09/18/24 22:57 96 09/18/24 22:18 95 09/18/24 22:00 09/18/24 21:45 96 09/18/24 21:12 95 09/18/24 21:08 97 Room Air 09/18/24 20:30 96 09/18/24 20:00 09/18/24 19:01 09/18/24 19:01 09/18/24 19:01 09/18/24 19:00 97 Resident Activity Tracking Resident Involvement: Resident Care Provided Care Provided: Adult Hospital Medicine
[2024-09-19] MEDS: SERTRALINE HCL 100 MG TABLET PO SCH (07:29)
--- NOTE | 2024-09-19 13:03 | Surgery Progress Note ---
Date of Service September 19, 2024 Assessment & Plan (1) Status post endovascular aneurysm repair: Plan: This patient is postoperative day 1 from a endovascular aortic repair. He is doing extremely well. He was discharged today. Admission and Anticipated Discharge Date Admission Date: September 18, 2024 Subjective Patient with no complaints. He denies any foot pain or numbness. Physical Exam Constitutional: WD/WN, vitals as above Respiratory: normal respiratory effort; no respiratory distress Cardiovascular: RRR, no murmur, no edema Vessels: posterior tibial pulses present (Doppler) Gastrointestinal (Abdomen): Inspection/Auscultation: abdomen normal to inspection; abdomen not distended Percussion/Palpation: abdomen soft; abdomen nontender Skin: + incision (Puncture sites dry and clean ) Neurologic: CN's II-XI intact bilaterally and moves all extremities Psychiatric: A+Ox3, euthymic affect Results & Data Vital Signs (Past 12 Hours) Vital Signs Temp Pulse Pulse Resp BP BP BP 09/19/24 12:00 37.1 C 09/19/24 11:12 68 16 09/19/24 11:00 132/95 09/19/24 11:00 132/95 09/19/24 10:57 63 26 H 09/19/24 10:00 60 21 09/19/24 10:00 128/75 09/19/24 10:00 128/75 09/19/24 09:32 123/73 09/19/24 09:32 123/73 09/19/24 09:24 63 18 09/19/24 09:01 109/67 09/19/24 09:00 58 L 11 L 09/19/24 08:03 65 15 09/19/24 08:02 126/68 09/19/24 08:02 126/68 09/19/24 08:02 126/68 09/19/24 08:00 09/19/24 08:00 09/19/24 08:00 120/71 09/19/24 08:00 69 09/19/24 07:42 61 11 L 09/19/24 07:03 56 L 21 09/19/24 07:00 129/63 09/19/24 07:00 129/63 09/19/24 07:00 129/63 09/19/24 07:00 36.7 C 60 18 152/60 H 129/63 09/19/24 06:54 56 L 20 09/19/24 06:06 63 21 09/19/24 06:00 37 C 120/71 09/19/24 06:00 120/71 09/19/24 05:54 69 19 09/19/24 05:00 66 17 09/19/24 05:00 120/76 09/19/24 04:03 60 20 09/19/24 04:01 147/69 H 09/19/24 04:01 147/69 H 09/19/24 04:01 147/69 H 09/19/24 04:00 160/64 H 09/19/24 03:54 60 19 09/19/24 03:06 79 20 09/19/24 03:01 195/83 H 09/19/24 03:01 195/83 H 09/19/24 02:45 64 16 09/19/24 02:03 66 18 09/19/24 02:00 126/86 09/19/24 02:00 126/86 09/19/24 01:57 68 19 09/19/24 01:12 76 20 Pulse Ox O2 Del Method 09/19/24 12:00 09/19/24 11:12 94 09/19/24 11:00 09/19/24 11:00 09/19/24 10:57 95 09/19/24 10:00 95 09/19/24 10:00 09/19/24 10:00 09/19/24 09:32 09/19/24 09:32 09/19/24 09:24 96 09/19/24 09:01 09/19/24 09:00 96 09/19/24 08:03 96 09/19/24 08:02 09/19/24 08:02 09/19/24 08:02 09/19/24 08:00 Room Air 09/19/24 08:00 Room Air 09/19/24 08:00 09/19/24 08:00 09/19/24 07:42 96 09/19/24 07:03 96 09/19/24 07:00 09/19/24 07:00 09/19/24 07:00 09/19/24 07:00 98 Room Air 09/19/24 06:54 95 09/19/24 06:06 95 09/19/24 06:00 09/19/24 06:00 09/19/24 05:54 95 09/19/24 05:00 95 09/19/24 05:00 09/19/24 04:03 95 09/19/24 04:01 09/19/24 04:01 09/19/24 04:01 09/19/24 04:00 09/19/24 03:54 94 09/19/24 03:06 81 L 09/19/24 03:01 09/19/24 03:01 09/19/24 02:45 96 09/19/24 02:03 94 09/19/24 02:00 09/19/24 02:00 09/19/24 01:57 94 09/19/24 01:12 88 L
--- NOTE | 2024-09-19 13:05 | Discharge Summary ---
Date of Service September 19, 2024 Admission HPI Per Admitting Provider Mr Tyson is a 74-year-old gentleman who has been treated for bladder cancer last few years. He underwent CT scanning of his abdomen and pelvis recently which showed a 5.7 infrarenal abdominal aortic aneurysm. He has no complaints of abdominal pain other than some indigestion. He denies any claudication. He denies any symptoms cerebrovascular sufficiency. He does have a brother that suddenly of unknown causes. He does have high blood pressure and has a [id number] history of smoking. Admission Exam Per Admitting Provider On physical exam he is awake alert and oriented x 3. He is in no apparent distress. Blood pressure is 140/70 on the left and 132/70 on the right. Radials and carotids are +2 bilaterally. No carotid bruits. Heart had a regular rate and rhythm. His lungs are clear but breath sounds are slightly distant. Abdominal sounds benign. There is a moderate size pulsatile mass in the mid epigastrium approximately 5 to 6 cm on palpation. Femorals and pedal pulses are +2 bilaterally. Neurologic exam normal to motor and sensory function. Principal Diagnosis Abdominal aortic aneurysm Discharge Exam On physical exam he is awake alert and oriented x 3. He is in no apparent distress. Blood pressure is 140/70 on the left and 132/70 on the right. Radials and carotids are +2 bilaterally. No carotid bruits. Heart had a regular rate and rhythm. His lungs are clear but breath sounds are slightly distant. Abdominal sounds benign. There is a moderate size pulsatile mass in the mid epigastrium approximately 5 to 6 cm on palpation. Femorals and pedal pulses are +2 bilaterally. Neurologic exam normal to motor and sensory function. Diagnostic Results CT scan done in the emergency room showed a 5.7 infrarenal abdominal aortic aneurysm. Constitutional WD/WN, vitals as above Respiratory normal respiratory effort; no respiratory distress Cardiovascular RRR, no murmur, no edema Vessels: posterior tibial pulses present (Doppler) Gastrointestinal (Abdomen) Inspection/Auscultation: abdomen normal to inspection; abdomen not distended Percussion/Palpation: abdomen soft; abdomen nontender Skin + incision (Puncture sites dry and clean) Neurologic CN's II-XI intact bilaterally and moves all extremities Psychiatric A+Ox3, euthymic affect Discharge Data Allergies Allergy/AdvReac Type Severity Reaction Status Date / Time sulfamethoxazole Allergy Severe Anaphylaxis Verified 09/18/24 09:01 [From Bactrim] trimethoprim [From Bactrim] Allergy Severe Anaphylaxis Verified 09/18/24 09:01 tamsulosin [From Flomax] AdvReac Intermediate Irritable Verified 09/18/24 09:01 Consultations 09/18/24 14:08 Consult Legislative Analyst Routine Procedures Performed Operation Date: 09/18/24 10:20 Actual Procedures p Percutaneous Endovascular Abdominal Aortic Aneurysm Repair,Bilateral Iliac Extensions,Mechanical Closure of Bilateral Femoral Arteries(Bilateral) - Darren Rico MD Ordered Studies 09/18/24 09:51 EV AAA repair aorta only Routine US EV guide vascular access Routine Hospital Course (1) Status post endovascular aneurysm repair: This patient is postoperative day 1 from a endovascular aortic repair. He is doing extremely well. He was discharged today. Total Time Total Time Spent Total Time Spent (In Minutes): x Discharge Plan Discharge Items Patient Disposition: Home - Self-Care Reason For Visit: Abdominal Aortic Aneursym Discharge Diagnosis: Abdominal aortic aneurysm Activity: Per Instructions section Non-emergency contact: Surgeon Call non-emergency contact if: your temperature is above 101.5, your wound has increased redness, your wound has increased drainage and your wound pain has increased Follow-up/Referrals: Rama Powell M.D. [Primary Care Provider] - Diet: Heart Healthy Add Attending Provider Instructions: SPECIAL CARE INSTRUCTIONS: Diet: * You may return to previous diet. Medications: * Continue to take your medications as directed. Incision/Puncture Site Care: * You will have an incision or puncture in each of your groins. Liquid glue will be used to seal your incisions/puncture site. This will lift off as the incisions/puncture sites heal. * If Liquid glue is not used, there will be small dressings covering your incisions. After you get home, you may remove the dressings and shower - allowing the warm soapy water to run over it. * Be sure to dry the sites well and keep them dry. * DO NOT SOAK IN A TUB/POOL/etc. UNTIL ALL SURGICAL SITES ARE HEALED. DO NOT REMOVE THE GLUE UNTIL THE INCISIONS HEAL. Restrictions: * Limit yourself to diplomatic interpreter activity for the first week. * You may walk and go up and down steps. * Avoid excessive bending or movement at the level of the incisions or punctures. Risks and Possible Complications: * Infection/Drainage/Bleeding - Drainage or bleeding from the incisions/puncture site should be minimal. If you have excessive bleeding or drainage, call our office ([phone]) right away. * Pain/Numbness - You may experience some mild pain or soreness at your incision sites. You may also have some numbness around the incisions or into the insides of your thighs. Bruising is normal and should resolve within 2 weeks. * Changes in Appetite or Bowel Habits - Mostly related to anesthesia and pain medication, some patients have reported decreased appetite and/or problems with constipation. These symptoms usually improve over a few weeks. Remembering to take an [id number] stool softener, as directed, will help you to avoid constipation. Call our office and seek emergent treatment if you develop: * Fever or chills * Have a temperature greater than 101 degrees F * Any redness or purulent drainage from your incisions or punctures * Severe abdominal, chest or back pain SKIN IRRITATION: * You may experience some redness and/or swelling in the area where radiation was administered. If any skin irritation occurs, please contact your family physician. You will be receiving a call from the Vascular Surgery Nurse after you are discharged. FOLLOW UP VISIT: It is important for you to keep your follow up appointments with your medical provider. Keep any scheduled doctor appointments. Call [phone] to schedule a follow up appointment if one not already scheduled. Pending Studies at Discharge: No Stand-Alone Forms: My [facility] [place], Smoking Cessation Medications and DC Order Prescriptions: Continued atorvastatin [Lipitor] 20 mg Tablet 20 mg PO QPM Qty: 0 aspirin [Michelle Low Dose Aspirin] 81 mg Tablet,Delayed Release (Dr/Ec) 81 mg PO QPM Qty: 0 sertraline [Zoloft] 100 mg Tablet 100 mg PO QAM oxycodone 15 mg Tablet 15 mg PO Q4H PRN (Reason: Pain) albuterol sulfate 90 mcg/actuation Hfa Aerosol Inhaler 1 inh INHALATION QID PRN (Reason: Shortness Of Breath) fentanyl 25 mcg/hr patch 72 hour 1 patch transdermal Q3D Discharge Orders: Discharge Order (Routine); Ordered 09/19/24 Ordered By: Darren Rico Admission Data Admit Date/Time: 09/18/24 09:34 Attending Provider: Darren Rico Admit Provider: Darren Rico Primary Care Provider: Rama Powell Other Providers: Tyler Castillo; Cyrus Pulido; Darrell Zayas; Mickey Draper; Kvng Jones; Rosalino Ceja; Cami Lanier; Clari Young
== END 2024-09-19 13:49 | disposition home or self-care (01) | DRG 269 ==
LOC: ASU 08:17 → 1E 11:54